=== PATIENT | female | born 1990 | race Caucasian/White ===

== ENCOUNTER 2016-10-02 10:23 | Emergency (ER) | payer OTHER ==
[2016-10-02 10:32] VITALS: TEMP 98.3; BMI 20.5
[2016-10-02] MEDS ORDERED: SODIUM CHLORIDE 1,000 ML IV STA (10:43)
--- NOTE | 2016-10-02 10:49 | PDOC ---
History of Present Illness - General Chief Complaint: Syncope/Near Syncope Stated Complaint: DIZINESS,WEAKNESS Time Seen by Provider: 10/02/16 10:42 History Source: Patient Exam Limitations: No Limitations - History of Present Illness Initial Comments: 10/02/16 10:58 26-year-old female presents the ED with complaints of dizziness, weakness, and sweating upon awakening this morning. Patient states called for her mom who stated patient appeared pale and wants about to "black out " mother states when she laid the patient down her color returned but called EMS for further evaluation. Upon EMS arrival patient was found to have a blood pressure 90/50. Patient states had BGM in the field but no record of it given in report. Patient states has had increased heavy menses for the past 6 months and one month ago was recommended to start oral contraceptives for the above but states insurance did not approve it and did not start taking anything as of yet. Timing/Duration: intermittent Severity: moderate Associated Symptoms: reports: diaphoresis, weakness Past History - Past Medical History Allergies/Adverse Reactions: Allergies Allergy/AdvReac Type Severity Reaction Status Date / Time Penicillins Allergy Intermediate Swelling Verified 10/02/16 10:28 Home Medications: Ambulatory Orders NK [No Known Home Medication] 10/02/16 - Reproductive History (#): 0 Para: 0 Cervical CA: No Dysfunctional Uterine Bleeding: No Ectopic : No Endometrial CA: No Polycystic Ovaries: No Therapeutic (s) & number: No Tubal Ligation: No Spontaneous : 0 - Immunization History Immunization Up to Date: Yes - Psycho/Social/Smoking Cessation Hx Anxiety: No Suicidal Ideation: No Smoking History: Never smoked Have you smoked in the past 12 months: No Hx Alcohol Use: No Drug/Substance Use Hx: No Substance Use Type: None Patient Lives Alone: No Lives with/in: parents Review of Systems - Review of Systems Able to Perform ROS?: Yes Constitutional: Yes: Weakness HEENTM: No: Symptoms Reported Respiratory: No: Symptoms reported Cardiac (ROS): Yes: Lightheadedness. No: Syncope (near) ABD/GI: No: Nausea : No: Symptoms Reported Integumentary: Yes: Sweating Neurological: No: Symptoms reported Endocrine: No: Symptoms Reported Hematologic/Lymphatic: No: Symptoms Reported *Physical Exam - Vital Signs Last Vital Signs Temp Pulse Resp BP Pulse Ox 98.3 F 83 18 97/74 100 10/02/16 10:28 10/02/16 10:28 10/02/16 10:28 10/02/16 10:28 10/02/16 10:28 - Physical Exam General Appearance: Yes: Nourished, Appropriately Dressed. No: Apparent Distress HEENT: positive: EOMI, AVILA, TMs Normal, Pharynx Normal. negative: Pale Conjunctivae Neck: positive: Supple Respiratory/Chest: positive: Lungs Clear, Normal Breath Sounds. negative: Respiratory Distress, Accessory Muscle Use Cardiovascular: positive: Regular Rhythm, Regular Rate. negative: Murmur Gastrointestinal/Abdominal: positive: Soft. negative: Tenderness Extremity: positive: Normal Capillary Refill Integumentary: positive: Normal Color, Warm, Moist Neurologic: positive: Motor Strength 5/5, Other (patient orthostatic). negative : Normal Mood/Affect ED Treatment Course - LABORATORY CBC & Chemistry Diagram: 10/02/16 11:23 10/02/16 11:23 Medical Decision Making - Medical Decision Making 10/02/16 11:04 Patient had a near syncopal episode when getting up this morning. Patient denies recent illness, recent travel but does state heavy menses but had it approximately 2 weeks ago. Which she states finished approximately one week ago. Patient currently has no complaints except feeling generalized fatigue. Patient ordered for labs, urine and urine , IV fluids, BGM and orthostatic vitals 10/02/16 14:12 10/02/16 14:13 Laboratory Tests 10/02/16 10/02/16 10/02/16 11:23 11:23 11:23 WBC 6.5 Hgb 14.9 D Hct 44.6 Plt Count 122 L Neutrophils % 72.5 Sodium 139 Potassium 4.3 Chloride 104 Carbon Dioxide 25 Anion Gap 10 BUN 14 D Creatinine 0.8 Creat Clearance w eGFR > 60 Random Glucose 77 Calcium 10.0 Magnesium AST 11 L D ALT 18 D Alkaline Phosphatase 42 L Urine Ketones Negative Urine Blood 1+ H Urine Urobilinogen Negative Ur Leukocyte Esterase 3+ H Urine RBC 8 Urine WBC 35 Urine HCG, Qual Negative 10/02/16 11:23 WBC Hgb Hct Plt Count Neutrophils % Sodium Potassium Chloride Carbon Dioxide Anion Gap BUN Creatinine Creat Clearance w eGFR Random Glucose Calcium Magnesium 2.2 AST ALT Alkaline Phosphatase Urine Ketones Urine Blood Urine Urobilinogen Ur Leukocyte Esterase Urine RBC Urine WBC Urine HCG, Qual States feeling much better and requesting to eat. Patient given a lunch tray and ordered for urine culture. Patient will be discharged home with Macrobid. *DC/Admit/Observation/Transfer Diagnosis at time of Disposition: Pre-syncope, Orthostatic hypotension Urinary tract infection Qualifiers: Urinary tract infection type: acute cystitis Hematuria presence: without hematuria Qualified Code(s): N30.00 - Acute cystitis without hematuria - Discharge Dispostion Disposition: HOME Condition at time of disposition: Improved - Patient Instructions Printed Discharge Instructions: DI for Urinary Tract Infection (UTI) Additional Instructions: Please take antibiotics as prescribed until completed. Please follow-up with your [employer] [facility]PER and take your lab work with you. Drink plenty of fluids.
[2016-10-02 11:42] LABS: BASOPHIL 0.3 % (0-2.0); EOSINOPHIL 0.6 % (0-4.5); MCHC 33.5 g/dl (32.0-36.0); MEAN CELL VOLUME 86.6 fl (80-96); MEAN PLT VOLUME 8.4 fl (7.5-11.1); NEUTROPHILS 72.5 % (42.8-82.8); PLATELET COUNT 122 K/MM3 (134-434); RDW 13.3 % (11.6-15.6); WHITE BLOOD COUNT 6.5 K/mm3 (4.0-10.0)
[2016-10-02 12:15] LABS: ALBUMIN 4.6 g/dl (3.4-5.0); ALK PHOS 42 U/L (45-117); ANION GAP 10 (8-16); BILIRUBIN,TOTAL 0.5 mg/dL (0.2-1.0); CO2 25 mmol/L (21-32); CREATININE 0.8 mg/dL (0.55-1.02); GLUCOSE,RANDOM 77 mg/dL (74-106); SGOT/AST 11 U/L (15-37); SGPT/ALT 18 U/L (12-78); TOT PROT 7.9 g/dl (6.4-8.2)
[2016-10-02 13:56] LABS: URINE APPEARANCE CLOUDY; URINE BILIRUBIN NEGATIVE (NEGATIVE); URINE COLOR YELLOW; URINE GLUCOSE (UA) NEGATIVE (NEGATIVE); URINE KETONE NEGATIVE (NEGATIVE); URINE NITRITE NEGATIVE (NEGATIVE); URINE PROTEIN NEGATIVE (NEGATIVE); URINE UROBILINOGEN NEGATIVE E.U./dl (0.2-1.0)
[2016-10-02 13:59] LABS: URINE BLOOD 1+ (NEGATIVE); URINE LEUK ESTERASE 3+ (NEGATIVE)
[2016-10-02 14:01] LABS: URINE BACTERIA MODERATE /hpf (NONE SEEN); URINE MUCUS RARE; URINE RBC 8 /hpf (0-3); URINE WBC 35 /hpf (3-5)
[2016-10-02 15:01] VITALS: BP 105/70; PULSE 78
== END 2016-10-02 15:01 | disposition home or self-care (01) ==
LOC: JER 10:23
PROC: 3E0337Z Introduction of Electrolytic and Water Balance Substance into Peripheral Vein, Percutaneous Approach (ICD-10-PCS; principal; 2016-10-02)
DX: I95.1 Orthostatic hypotension (principal); N30.00 Acute cystitis without hematuria
CPT/HCPCS: 36415; 80053; 81003; 81015; 83735; 84703; 85025; 87086; 99282-25

== ENCOUNTER 2020-01-24 18:14 | Emergency (ER) | payer OTHER ==
[2020-01-24] MEDS ORDERED: IBUPROFEN 600 MG TABLET (FP) PO ONE ×2 (18:26→18:53)
--- NOTE | 2020-01-24 18:26 | PDOC ---
Rapid Medical Evaluation Time Seen by Provider: 01/24/20 18:24 Medical Evaluation: Allergies Allergy/AdvReac Type Severity Reaction Status Date / Time Penicillins Allergy Intermediate Swelling Verified 10/02/16 10:28 01/24/20 18:24 29 year old female with no pmhx complaining of left sided black floaters with as sociated BOOTH. No N/V/ dizziness or vision changes. No Contacts or glasses PE: Eyes: GISELLE, pain on Left eye EOM, but intact Plan Pt to precede to ED for further treatment and care
[2020-01-24 18:28] VITALS: BP 116/77; PULSE 83; TEMP 98; BMI 20.9
--- NOTE | 2020-01-24 18:59 | PDOC ---
History of Present Illness - General Chief Complaint: Eye Problem Stated Complaint: LT EYE PAIN Time Seen by Provider: 01/24/20 18:24 History Source: Patient Exam Limitations: Clinical Condition - History of Present Illness Initial Comments: 01/24/20 19:33 Patient with no significant past medical history present with complaint of black floaters in left eye for the past 3 days which has been intermittent. Denies any blurry vision or change in vision. Patient does not wear any contact lens or corrective lens. Denies headache, nausea, vomiting, dizziness. Denies any other symptoms Is this a multiple visit Asthma Patient?: No Timing/Duration: other (3 days) Past History - Medical History Allergies/Adverse Reactions: Allergies Allergy/AdvReac Type Severity Reaction Status Date / Time Penicillins Allergy Intermediate Swelling Verified 01/24/20 18:39 Home Medications: Ambulatory Orders Nitrofurantoin Monohyd/M-Cryst [Macrobid -] 100 mg PO BID #14 capsule 10/02/16 Cyclopentolate 1% Eye Drops [Cyclogyl 1% Eye Drops -] 2 drop OS Q8H PRN 5 Days #1 dropsbtl 01/24/20 - Reproductive History (#): 0 Para: 0 Cervical CA: No Dysfunctional Uterine Bleeding: No Ectopic : No Endometrial CA: No Polycystic Ovaries: No Therapeutic (s) & number: No Tubal Ligation: No Spontaneous : 0 - Immunization History Immunization Up to Date: Yes - Psycho-Social/Smoking History Smoking History: Never smoked Have you smoked in the past 12 months: No Information on smoking cessation initiated: No - Substance Abuse Hx (Audit-C & DAST Scrn) How often the patient has a drink containing alcohol: Never Score: In Men: 4 or > Positive; In Women: 3 or > Positive: 0 Screen Result (Pos requires Nsg. Audit-10AR): Negative In the last yr the pt used illegal drug/Rx for NonMed reason: No Score: Yes response is considered Positive: 0 Screen Result (Positive result requires Nsg. DAST-10): Negative Review of Systems - Review of Systems Able to Perform ROS?: Yes Is the patient limited Georgian proficient: No Constitutional: No: Chills, Fever HEENTM: Yes: Symptoms Reported, See HPI, Eye Pain (intermittent floaters in left eye). No: Blurred Vision, Tearing, Recent change in vision, Double Vision, Cataracts, Ear Pain, Ocular Prothesis, Ear Discharge, Nose Pain, Nose Congestion, Tinnitus, Nose Bleeding, Hearing Loss, Throat Pain, Throat Swelling, Mouth Pain, Dental Problems, Difficulty Swallowing, Mouth Swelling, Other Respiratory: No: Symptoms reported, See HPI, Cough, Orthopnea, Shortness of Breath, SOB with Exertion, SOB at Rest, Stridor, Wheezing, Productive cough, Hemoptysis, Other Cardiac (ROS): No: Symptoms Reported, See HPI, Chest Pain, Edema, Irregular Heart Rate, Lightheadedness, Palpitations, Syncope, Chest Tightness, Other ABD/GI: No: Symptoms Reported, Nausea, Vomiting Neurological: No: Symptoms reported, Headache, Dizziness All Other Systems: Reviewed and Negative *Physical Exam - Vital Signs Last Vital Signs Temp Pulse Resp BP Pulse Ox 98 F 83 16 116/77 100 01/24/20 18:24 01/24/20 18:24 01/24/20 18:24 01/24/20 18:24 01/24/20 18:24 - Physical Exam 01/24/20 19:35 GENERAL: Well developed, well nourished. Awake and alert. No acute distress. HEENT: Normocephalic, atraumatic. PERRLA, EOMI bilateral. No conjunctival pallor or erythema bilateral. Sclera are non-icteric. Moist mucous membranes. Oropharynx is clear. NECK: Supple. Full ROM. PULMONARY: No evidence of respiratory distress. MUSCULOSKELETAL Normal range of motion at all joints. SKIN: Warm and dry. Normal capillary refill. No rashes. No jaundice. NEUROLOGICAL: Alert, awake, appropriate. Gait is normal without ataxia. PSYCHIATRIC: Cooperative. Good eye contact. Appropriate mood General Appearance: Yes: Nourished, Appropriately Dressed. No: Apparent Distress Medical Decision Making - Medical Decision Making 01/24/20 19:34 Patient with no significant past medical history present with complaint of black floaters in left eye for the past 3 days which has been intermittent. Denies any blurry vision or change in vision. Patient does not wear any contact lens or corrective lens. Denies headache, nausea, vomiting, dizziness. Denies any other symptoms Clinical unremarkable. Pupil equal and refractory to light bilateral. Extraocular muscle intact bilateral. Patient in no acute distress. Patient stable for discharge on cyclopentolate PRN for eye spasm with ophthalmol ogy follow-up. Stressed the importance of immediate ophthalmology follow-up with patient and patient agrees to follow-up and will follow-up with ophthalmology. Patient stable for discharge Discharge - Discharge Information Problems reviewed: Yes Clinical Impression/Diagnosis: Acute left eye pain Visual floaters Qualifiers: Laterality: left Qualified Code(s): H43.392 - Other vitreous opacities, left eye Condition: Stable Disposition: HOME - Admission No - Additional Discharge Information Prescriptions: Cyclopentolate 1% Eye Drops [Cyclogyl 1% Eye Drops -] 2 drop OS Q8H PRN 5 Days #1 dropsbtl PRN Reason: left eye discomfort - Follow up/Referral Referrals: Osmin Jordan [Primary Care Provider] - Rodriguez Panda MD [Staff Physician] - Manuel Miller MD [Staff Physician] - - Patient Discharge Instructions Patient Printed Discharge Instructions: DI for Eye Floaters Additional Instructions: Use eyedrops as prescribed as needed for eye irritation or pain. Follow-up referred stylist apprentice as soon as possible - Post Discharge Activity
== END 2020-01-24 19:04 | disposition home or self-care (01) ==
LOC: JERFT 18:14 → JER 18:14 → JERFT 19:04
DX: H43.392 Other vitreous opacities, left eye (principal)
CPT/HCPCS: 99283-25

== ENCOUNTER 2021-04-20 17:06 | Emergency (ER) | payer BC, OTHER ==
[2021-04-20 17:27] VITALS: BP 103/68; PULSE 78; TEMP 97.8; BMI 21.6
== END 2021-04-20 19:36 | disposition home or self-care (01) ==
LOC: JERFT 17:06
DX: N75.0 Cyst of Bartholin's gland (principal); N75.1 Abscess of Bartholin's gland
CPT/HCPCS: 99281-25

== ENCOUNTER 2022-07-23 17:04 | Emergency (ER) | payer BC, OTHER ==
[2022-07-23 17:08] VITALS: PULSE 87; RESP 18; TEMP 98; BMI 21.6
[2022-07-23] MEDS ORDERED: SODIUM CHLORIDE 1,000 ML IV STA (18:25)
[2022-07-23] MEDS ORDERED: LIDOCAINE 5% TOPICAL PATCH TP ONE (18:38)
[2022-07-23] MEDS ORDERED: LIDOCAINE 5% TOPICAL PATCH ONE (18:43)
[2022-07-23 19:02] VITALS: BP 118/85
[2022-07-23 19:28] LABS: EPI CELLS 11 /uL (0-25.1); HYALINE CASTS 0 /uL (0-3.1); URINE APPEARANCE CLEAR; URINE BACTERIA 607 /uL (0-1359); URINE BILIRUBIN NEGATIVE (NEGATIVE); URINE COLOR YELLOW; URINE GLUCOSE (UA) NEGATIVE (NEGATIVE); URINE KETONE NEGATIVE (NEGATIVE); URINE LEUK ESTERASE 1+ (NEGATIVE); URINE NITRITE NEGATIVE (NEGATIVE); URINE PROTEIN NEGATIVE (NEGATIVE); URINE RBC 61 /uL (0-23.9); URINE UROBILINOGEN 0.2 mg/dL (0.2-1.0); URINE WBC 10 /uL (0-25.8)
[2022-07-23 19:56] LABS: BASO % 0.4 % (0-2.0); EOS % 0.7 % (0-4.5); HEMOGLOBIN 14.8 GM/dL (10.7-15.3); LYMPH % 37.9 % (8-40); MEAN CELL VOLUME 84.8 fl (80-96); MEAN PLT VOLUME 7.9 fl (7.5-11.1); MONO % 5.7 % (3.8-10.2); NEUT % 55.3 % (42.8-82.8); PLATELET COUNT 190 10^3/uL (134-434); RBC 5.31 M/mm3 (3.60-5.2); RDW 14.1 % (11.6-15.6); WHITE BLOOD COUNT 6.1 K/mm3 (4.0-10.0)
[2022-07-23 20:05] LABS: CALCIUM 9.9 mg/dL (8.5-10.1)
[2022-07-23 20:06] LABS: BLOOD UREA NITROGEN 20.6 mg/dL (7-18)
[2022-07-23 20:09] LABS: CREATININE 0.8 mg/dL (0.55-1.3)
[2022-07-23 20:11] LABS: BILIRUBIN,TOTAL 0.3 mg/dL (0.2-1); TOT PROT 8.6 g/dl (6.4-8.2)
[2022-07-23] MEDS ORDERED: LIDOCAINE PATCH REMOVAL MC SCH (22:00)
== END 2022-07-23 20:41 | disposition home or self-care (01) ==
LOC: JER 17:04
PROC: 3E0337Z Introduction of Electrolytic and Water Balance Substance into Peripheral Vein, Percutaneous Approach (ICD-10-PCS; principal; 2022-07-23)
DX: R20.2 Paresthesia of skin (principal); M54.2 Cervicalgia
CPT/HCPCS: 36415; 71046-TC-FY; 80053; 81003; 84443; 84484; 84703; 85025; 87086; 93005; 93010; 99285-25